=== PATIENT | male | born 1980 | race Caucasian/White ===

== ENCOUNTER 2021-08-31 15:42 | Emergency (ER) | payer OTHER ==
[2021-08-31 16:12] VITALS: BP 147/86; PULSE 89; TEMP 98.7; BMI 36.0
[2021-08-31] MEDS ORDERED: IBUPROFEN 600 MG TABLET (FP) PO ONE ×2 (17:06→17:23)
== END 2021-08-31 18:10 | disposition home or self-care (01) ==
LOC: JERFT 15:42 → JER 15:42 → JERFT 18:10
DX: S46.912A Strain of unspecified muscle, fascia and tendon at shoulder and upper arm level, left arm, initial encounter (principal); S66.912A Strain of unspecified muscle, fascia and tendon at wrist and hand level, left hand, initial encounter; V03.10XA Pedestrian on foot injured in collision with car, pick-up truck or van in traffic accident, initial encounter
CPT/HCPCS: 73070-TC-LT-FY; 99283-25

== ENCOUNTER 2024-09-02 07:49 | Emergency (ER) | payer OTHER ==
[2024-09-02 07:55] VITALS: BP 133/80; PULSE 103; RESP 18; TEMP 100.4; BMI 37.8
[2024-09-02] MEDS ORDERED: ACETAMINOPHEN 325 MG TABLET (FP) ONE (08:52)
[2024-09-02] MEDS: ACETAMINOPHEN 500 MG TABLET (FP) PO ONE (08:54)
[2024-09-02 09:25] LABS: THROAT:GRP A STREP DETECTED (NOTDETECTED)
[2024-09-02] MEDS: PENICILLIN G BENZATHINE 2,400,000 UNIT/4 ML PFS IM ONE (10:04)
[2024-09-02] MEDS ORDERED: PENICILLIN G BENZATHINE 1,200,000 UNIT/2 ML PFS IM ONE (10:12)
[2024-09-02] MEDS: PENICILLIN G BENZATHINE 1,200,000 UNIT/2 ML PFS IM ONE (10:29)
== END 2024-09-02 10:45 | disposition home or self-care (01) ==
LOC: JER 07:49 → JERFT 07:49
DX: J02.0 Streptococcal pharyngitis (principal); R50.9 Fever, unspecified; R51.9 Headache, unspecified; Z20.822 Contact with and (suspected) exposure to COVID-19
CPT/HCPCS: 0241U-QW; 71046-TC-FY; 87651; 99284-25

== ENCOUNTER 2025-01-13 19:10 | Emergency (ER) | payer OTHER ==
[2025-01-13 19:15] VITALS: BP 155/95; PULSE 74; RESP 18; TEMP 98.2; BMI 36.0
[2025-01-13] MEDS ORDERED: IBUPROFEN 600 MG TABLET (FP) PO ONE (19:41)
[2025-01-13] MEDS ORDERED: AMOX TR/POT CLAV 875MG/125MG TABLETS (FP) ONE (19:41)
[2025-01-13] MEDS: AMOX TR/POT CLAV 875MG/125MG TABLETS (FP) PO ONE (19:43)
[2025-01-13] MEDS: IBUPROFEN 600 MG TABLET (FP) PO ONE (19:43)
== END 2025-01-13 19:51 | disposition home or self-care (01) ==
LOC: JERFT 19:10
DX: H66.92 Otitis media, unspecified, left ear (principal); H92.02 Otalgia, left ear
CPT/HCPCS: 99283-25